=== PATIENT | male | born 1970 | race Caucasian/White ===

== ENCOUNTER 2017-03-21 07:05 | Emergency (ER) | payer BC ==
[~2017-03-21] VITALS: Ht 190.5 cm; Wt 154.2 kg
[2017-03-21] MEDS ORDERED: ALLO300T2 PO (07:28)
[2017-03-21] MEDS ORDERED: BUPR300T52 PO (07:28)
[2017-03-21] MEDS ORDERED: DIOVAN HCT PO (07:28)
[2017-03-21] MEDS ORDERED: LAMO150T2 PO (07:28)
[2017-03-21] MEDS ORDERED: AMLO10TA2 PO (07:28)
[2017-03-21] MEDS ORDERED: ARIP20TA4 PO (07:28)
[2017-03-21] MEDS ORDERED: ALLOPURINOL PO (07:28)
--- NOTE | 2017-03-21 08:05 | NUR ---
dr stewart at the bedsided for eval and exam.
[2017-03-21] MEDS ORDERED: ONDANSETRON 4 MG/2 ML VIAL IV ONE (08:15)
[2017-03-21] MEDS ORDERED: IV NS 1000 ML 1,000 ML IV ONE (08:15)
[2017-03-21] MEDS ORDERED: HYDROCODONE/APAP 10-325 MG TABLET PO ONE (08:15)
[2017-03-21] MEDS ORDERED: HYDROCODONE/APAP 10-325 MG TABLET ONE (08:33)
[2017-03-21] MEDS ORDERED: ONDANSETRON 4 MG/2 ML VIAL ONE (08:33)
[2017-03-21] MEDS ORDERED: HYDROMORPHONE 1 MG/1 ML DISP.SYRIN IM ONE (10:45)
[2017-03-21] MEDS ORDERED: HYDROMORPHONE 2 MG/1 ML DISP.SYRIN ONE (10:59)
[2017-03-21 11:33] VITALS: BP 121/60
--- NOTE | 2017-03-21 11:33 | NUR ---
IV removed. Catheter intact and site benign. Pressure and 4x4 gauze applied to site. No bleeding noted.
--- NOTE | 2017-03-21 11:33 | NUR ---
Patient discharged to home in stable conditon. Written and verbal after care instructions given. Patient verbalizes understanding of instructions. pt left er accompained by family.
== END 2017-03-21 11:35 | disposition home or self-care (01) ==
LOC: ER 07:09
DX: S42.002A Fracture of unspecified part of left clavicle, initial encounter for closed fracture (principal); S16.1XXA Strain of muscle, fascia and tendon at neck level, initial encounter; S39.012A Strain of muscle, fascia and tendon of lower back, initial encounter; R51 Headache; I10 Essential (primary) hypertension; M10.9 Gout, unspecified; Z88.1 Allergy status to other antibiotic agents; V43.52XA Car driver injured in collision with other type car in traffic accident, initial encounter; W22.10XA Striking against or struck by unspecified automobile airbag, initial encounter; Y93.89 Activity, other specified; Y99.8 Other external cause status; Y92.89 Other specified places as the place of occurrence of the external cause
CPT/HCPCS: 70450; 71020; 72072; 72100; 72125; 73030; A4663; J1170; J2405; J7030